=== PATIENT | female | born 1995 | race Caucasian/White ===

== ENCOUNTER 2022-08-21 16:45 | Emergency (ER) | payer MEDICAID ==
[~2022-08-21] VITALS: Ht 165.1 cm; Wt 59.0 kg
--- NOTE | 2022-08-21 17:00 | NUR ---
c/o CHEST TIGHTNESS X 5 DAYS
--- NOTE | 2022-08-21 17:12 | NUR ---
tech at bed side for ekg
--- NOTE | 2022-08-21 17:13 | NUR ---
waiting for the pt to let us start an iv line
[2022-08-21] MEDS ORDERED: ALPRAZOLAM 0.5 MG TABLET ONE (17:23)
[2022-08-21] MEDS ORDERED: ALPRAZOLAM 0.5 MG TABLET PO ONE (17:30)
--- NOTE | 2022-08-21 17:40 | NUR ---
RT PT REFUSING TO GET ABG DONE DUE TO FEAR OF NEEDLES, DR AYALA AWARE
--- NOTE | 2022-08-21 17:54 | NUR ---
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
--- NOTE | 2022-08-21 17:54 | NUR ---
WAIVER SIGNED BY PATIENT
--- NOTE | 2022-08-21 18:00 | NUR ---
BLOOD SAMPLE OBTAINED SENT TO LAB
--- NOTE | 2022-08-21 18:00 | NUR ---
ESTABLISHED IV LINE AT RIGHT AC 20 G ,
--- NOTE | 2022-08-21 18:01 | NUR ---
COVID AND INFLUENZA SWAB OBTAINED SENT TO LAB
--- NOTE | 2022-08-21 18:10 | NUR ---
URINE SAMPLE OBTAINED SENT TO LAB
[2022-08-21 19:11] LABS: CALCIUM, SERUM 9.4 mg/dL (8.5-10.1); CARBON DIOXIDE 30 mmol/L (21-32); CHLORIDE 103 mmol/L (98-107); CREATININE 0.8 mg/dL (0.6-1.3); GLUCOSE 91 mg/dL (74-106); SODIUM SERUM 138 mmol/L (136-145); UREA NITROGEN, BLOOD 9 mg/dL (7-18)
--- NOTE | 2022-08-21 19:15 | NUR ---
RECEIVED REPORT FROM DAYDAY MCGUIRE. PATIENT CAME EARLIER WITH CC OF CP. PATIENT IS [id number]. ABLE TO MAKE NEEDS KNOWN. NO CP AT THE MOMENT. WITH PERIPHERAL LINE ON RIGHT AC G20. PATIENT IS ATTACHED TO MONITOR. VITALS CHECKED.
[2022-08-21 20:02] LABS: BASOPHILS % (AUTO) 0.3 % (0.0-2.0); EOSINOPHILS % (AUTO) 0.6 % (0.0-6.0); HEMATOCRIT 40 % (33-45); HEMOGLOBIN 13.8 g/dL (11.5-14.8); LYMPHOCYTES # (AUTO) 1.5 K/uL (0.8-4.8); LYMPHOCYTES % (AUTO) 26.7 % (20.0-44.0); MEAN CORPUSCULAR HGB CONC 35 g/dl (31.0-36.0); MEAN CORPUSCULAR VOLUME 85 fL (82-100); MONOCYTES # (AUTO) 0.3 K/uL (0.1-1.30); MONOCYTES % (AUTO) 5.4 % (2.0-12.0); NEUTROPHILS # (AUTO) 3.7 K/uL (1.8-8.9); PLATELET COUNT (AUTO) 290 K/uL (150-450); WHITE BLOOD COUNT (AUTO) 5.6 K/uL (4.3-11.0)
[2022-08-21] MEDS ORDERED: IBUP-1953 PO (20:10)
--- NOTE | 2022-08-21 20:26 | NUR ---
IV CANNULA REMOVED
[2022-08-21 20:27] VITALS: BP 100/58
--- NOTE | 2022-08-21 20:27 | NUR ---
Patient discharged to home in stable condition. Written and verbal after care instructions given. Patient verbalizes understanding of instruction.
== END 2022-08-21 20:37 | disposition home or self-care (01) ==
LOC: ER 16:49
DX: R07.89 Other chest pain (principal); F41.0 Panic disorder [episodic paroxysmal anxiety]; Z20.822 Contact with and (suspected) exposure to COVID-19; Z87.01 Personal history of pneumonia (recurrent); Z87.891 Personal history of nicotine dependence
CPT/HCPCS: 99285; 71045; 87426; 93005; 87804; 85025; 80048; 36415; 84484; C9803